=== PATIENT | female | born 1960 | race Caucasian/White ===

== ENCOUNTER 2017-03-30 09:58 | Emergency (ER) | payer OTHER ==
[~2017-03-30] VITALS: Ht 175.3 cm; Wt 93.9 kg
[~2017-03-30 09:58] MED LIST: ASCORBIC ACID500 M3 PO; ASPIRIN81 M2 PO; DILAUDID2 MG PO; IBUPROFEN800 MG PO; NORCO 5/3251 TABLET PO; PAROXETINE HCL25 MG PO; PAXIL CR25 MG PO; ULTRAM50 MG PO; ZOFRAN4 MG PO
[2017-03-30] MEDS ORDERED: TORADOL10 MG PO (13:10)
[2017-03-30] MEDS ORDERED: FLEXERIL10 MG PO (13:10)
[2017-03-30 13:15] VITALS: BP 115/70
== END 2017-03-30 13:25 | disposition home or self-care (01) ==
LOC: EME 09:58
DX: R51 Headache (principal); S16.1XXA Strain of muscle, fascia and tendon at neck level, initial encounter; W01.0XXA Fall on same level from slipping, tripping and stumbling without subsequent striking against object, initial encounter; Y92.512 Supermarket, store or market as the place of occurrence of the external cause; Z85.43 Personal history of malignant neoplasm of ovary; Z90.710 Acquired absence of both cervix and uterus; F41.0 Panic disorder [episodic paroxysmal anxiety]
CPT/HCPCS: 70450; 72125; 73590; 99281; 99285